=== PATIENT | female | born 1965 | race Asian ===

== ENCOUNTER 2022-08-28 08:43 | Outpatient (CLI) | payer BC | END 2022-08-28 20:53 | disposition home or self-care (01) | LOC: MAMMO 08:43 | PROVIDERS: ATTEND Registered Nurse | DX: Z12.31 Encounter for screening mammogram for malignant neoplasm of breast (principal) ==

== ENCOUNTER 2022-12-20 15:26 | Emergency (ER) | payer OTHER, BC ==
[~2022-12-20] VITALS: Ht 160 cm; Wt 68.0 kg
[2022-12-20 16:30] VITALS: BP 184/82; TEMP 98.3
== END 2022-12-20 16:30 | disposition home or self-care (01) ==
LOC: ED 15:26
DX: S93.401A Sprain of unspecified ligament of right ankle, initial encounter (principal); S93.601A Unspecified sprain of right foot, initial encounter; X58.XXXA Exposure to other specified factors, initial encounter
CPT/HCPCS: 99283